=== PATIENT | male | born 1945 | race African-American/Black ===

== ENCOUNTER 2017-11-01 10:51 | Inpatient (IN) ==
[2017-11-01] MEDS ORDERED: MECLIZINE 25 MG TABLET PO STA (13:16)
[2017-11-01] MEDS ORDERED: ONDANSETRON 4 MG/2 ML VIAL IV STA (13:16)
[2017-11-01] MEDS ORDERED: SODIUM CHLORIDE 0.9% 500 ML IV STA (13:16)
[2017-11-01 14:11] LABS: Basophils # 0.1 10*3/uL (0.0-0.2); Basophils % 0.9 % (0.0-0.8); Eosinophils # 0.7 10*3/uL (0.0-0.87); Eosinophils % 7.7 % (0.00-10.9); Hematocrit 35.9 VOL% (42.0-52.0); Hemoglobin 12.4 GM/DL (14.0-18.0); Immature Granulocytes % 0.2 %; Immature Granulocytes Absolute 0.02 #; Lymphocytes # 1.5 10*3/uL (1.4-4.0); Lymphocytes % 15.9 % (21.2-54.2); Mean Corpuscular HGB Conc 34.5 GM/DL (32-36); Mean Corpuscular Hemoglobin 32 PG (27-34); Mean Corpuscular Volume 93.2 FL (87-102); Mean Platelet Volume 9.4 FL (9.6-12.0); Monocytes # 0.7 10*3/uL (0.11-0.8); Monocytes % 7.3 % (1.7-12.7); Neutrophils # 6.3 10*3/uL (1.4-7.4); Platelet Count 327 T/CUMM (130-400); Red Blood Count 3.85 MC/CUMM (3.8-5.5); Red Cell Distribution Width 12.1 % (9.3-17.3); White Blood Count 9.3 T/CUMM (4-12)
[2017-11-01 14:28] LABS: PT Patient Result 10.2 SECS
[2017-11-01 14:31] LABS: Alanine Aminotransferase 18 U/L (16-61); Albumin 3.1 G/DL (3.4-5.0); Alkaline Phosphatase 81 U/L (45-117); Aspartate Amino Transferase 14 U/L (0-37); Bilirubin,Total < 0.39 MG/DL (0.2-1.0); Blood Urea Nitrogen 10 MG/DL (7-18); Calcium 9.1 MG/DL (8.5-10.1); Glucose 231 MG/DL (74-106); Osmolality,Calculated 273.2 MOS/KG (273-304); Potassium 4.3 MMOL/L (3.5-5.1); Sodium 134 MMOL/L (136-145); Total Protein 6.9 G/DL (6.4-8.3); Troponin I Only < 0.015 NG/ML (0.00-0.045)
[2017-11-01] MEDS ORDERED: cefTRIAXone 1,000 MG in SODIUM CHLORIDE 0.9% 100 ML IV STA (14:48)
[2017-11-01] MEDS ORDERED: MECLIZINE 25 MG TABLET ONE (15:07)
[2017-11-01] MEDS ORDERED: ONDANSETRON 4 MG/2 ML VIAL ONE (15:07)
[2017-11-01] MEDS ORDERED: cefTRIAXone 1,000 MG VIAL ONE (15:07)
[2017-11-01] MEDS ORDERED: MORPHINE 2 MG/1 ML SYRINGE IV PRN (15:21)
[2017-11-01] MEDS ORDERED: GLUCAGON 1 MG VIAL IM PRN (15:21)
[2017-11-01] MEDS ORDERED: ACETAMINOPHEN 325 MG TABLET PO PRN (15:21)
[2017-11-01] MEDS ORDERED: DEXTROSE 50% 25 GM/50 ML VIAL IV PRN (15:21)
[2017-11-01] MEDS ORDERED: diphenhydrAMINE CAP 25 MG CAPSULE PO PRN (15:21)
[2017-11-01 15:22] LABS: Sedimentation Rate-Westergren 95 MM/HR (0-20)
[2017-11-01] MEDS ORDERED: ALBUTEROL 2.5 MG/3 ML NEB RESP TX PRN (15:33)
[2017-11-01 15:37] LABS: Apearance,Urine CLEAR (Clear); Bilirubin,Urine Negative (Negative); Blood, Urine Negative (Negative); Glucose,Urine (UA) >=500 mg/dL (Negative); Ketones,Urine Negative (Negative); Mucus,Urine Occasional /LPF (Occasional); Nitrite,Urine Negative (Negative); Protein,Urine Negative; RBC,Urine <1 /HPF (0-4); Urine Color Yellow (Yellow); Urine Urobilinogen < 2.0 EU/DL (0.2-1.0); WBC,Urine <1 /HPF (0-6)
[2017-11-01 15:44] LABS: Barbiturates Screen,Urine Negative (Negative); Benzodiazepines Screen,Urine Negative (Negative); Cannabinoid Screen,Urine Negative (Negative); Opiate Screen,Urine Negative (Negative); Phencyclidine Screen,Urine Negative (Negative)
[2017-11-01 15:57] LABS: Thyroid Stimulating Hormone 1.34 uIU/ml (0.358-3.74); VLDL CHOLESTEROL 26.6 MG/DL
[2017-11-01] MEDS ORDERED: ASPIRIN CHEW 81 MG TABLET PO ONE (17:19)
[2017-11-01] MEDS ORDERED: LEVOFLOXACIN INJ 0 ML IV ONE (17:19)
[2017-11-01] MEDS ORDERED: PANTOPRAZOLE 40 MG TABLET PO ONE (17:19)
[2017-11-01] MEDS ORDERED: amLODIPine 5 MG TABLET ONE (17:20)
[2017-11-01] MEDS: PANTOPRAZOLE 40 MG TABLET PO SCH (17:24)
[2017-11-01] MEDS: amLODIPine 5 MG TABLET PO SCH (17:24)
[2017-11-01] MEDS: ASPIRIN EC 81 MG TABLET PO SCH (17:24)
[2017-11-01] MEDS: SODIUM CHLORIDE 0.9% 1,000 ML IV SCH (17:38)
[2017-11-01] MEDS: LEVOFLOXACIN INJ 750 MG in PREMIX 1 EACH IV SCH (17:39)
[2017-11-01] MEDS ORDERED: INSULIN LISPRO 100 UNIT/ML SUBCUT ONE (17:42)
[2017-11-01] MEDS: LOSARTAN 50 MG TABLET PO SCH (17:48)
[2017-11-01] MEDS: INSULIN LISPRO 100 UNIT/ML SUBCUT SCH (17:48)
[2017-11-01] MEDS: ALFUZOSIN 10 MG TABLET PO SCH (17:48)
[2017-11-01] MEDS: buPROPion SR 150 MG TABLET PO SCH (17:48)
[2017-11-01] MEDS: ALBUTEROL/IPRATROPIUM 3 ML NEB RESP TX SCH (20:24)
[2017-11-01] MEDS ORDERED: DORZOLAMIDE 2% OPH SOLN 10 ML BOTTLE BOTH EYES SCH (21:00)
[2017-11-01] MEDS: ATORVASTATIN 40 MG TABLET PO SCH (21:49)
[2017-11-01] MEDS: ENOXAPARIN 40 MG/0.4 ML SYRINGE SUBCUT SCH (21:49)
[2017-11-01] MEDS: GABAPENTIN 600 MG TABLET PO SCH (21:49)
[2017-11-01] MEDS: GLIMEPIRIDE 2 MG TABLET PO SCH (21:50)
[2017-11-01] MEDS: traZODone 50 MG TABLET PO SCH (21:50)
[2017-11-01] MEDS: PIPERACILLIN/TAZOBACTAM 3,375 MG in SODIUM CHLORIDE 0.9% 100 ML IV SCH (22:30)
[2017-11-02] MEDS: ALBUTEROL/IPRATROPIUM 3 ML NEB RESP TX SCH ×4 (01:55→19:28)
[2017-11-02] MEDS: SODIUM CHLORIDE 0.9% 1,000 ML IV SCH ×2 (06:27→18:45)
[2017-11-02] MEDS: PIPERACILLIN/TAZOBACTAM 3,375 MG in SODIUM CHLORIDE 0.9% 100 ML IV SCH ×3 (06:28→22:30)
[2017-11-02 06:35] LABS: Basophils # 0.1 10*3/uL (0.0-0.2); Basophils % 1.2 % (0.0-0.8); Eosinophils # 0.8 10*3/uL (0.0-0.87); Eosinophils % 10.4 % (0.00-10.9); Hematocrit 32.4 VOL% (42.0-52.0); Hemoglobin 11.7 GM/DL (14.0-18.0); Immature Granulocytes % 0.3 %; Immature Granulocytes Absolute 0.02 #; Lymphocytes # 1.5 10*3/uL (1.4-4.0); Lymphocytes % 19.7 % (21.2-54.2); Mean Corpuscular HGB Conc 36.1 GM/DL (32-36); Mean Corpuscular Hemoglobin 33 PG (27-34); Mean Corpuscular Volume 91.3 FL (87-102); Mean Platelet Volume 9.1 FL (9.6-12.0); Monocytes # 0.6 10*3/uL (0.11-0.8); Monocytes % 7.7 % (1.7-12.7); Neutrophils # 4.6 10*3/uL (1.4-7.4); Neutrophils % 60.7 % (38.7-73.9); Platelet Count 287 T/CUMM (130-400); Red Blood Count 3.55 MC/CUMM (3.8-5.5); Red Cell Distribution Width 12.1 % (9.3-17.3); White Blood Count 7.5 T/CUMM (4-12)
[2017-11-02 07:07] LABS: Calcium 8.3 MG/DL (8.5-10.1); Magnesium 1.8 MG/DL (1.8-2.4); Osmolality,Calculated 282.3 MOS/KG (273-304); Potassium 3.9 MMOL/L (3.5-5.1)
[2017-11-02] MEDS ORDERED: LORazepam 2 MG/1 ML VIAL IV PRN (08:01)
[2017-11-02 08:07] LABS: Eosinophils 14 % (0-10); Giant Platelets Few; Hypochromasia 1+; Lymphocytes 23 % (20-55); Platelet Estimate Adequate; Segmented Neutrophils 61 % (50-85); Total Cells Counted 100
[2017-11-02] MEDS: ASPIRIN EC 81 MG TABLET PO SCH (09:08)
[2017-11-02] MEDS: GLIMEPIRIDE 2 MG TABLET PO SCH ×2 (09:08→21:31)
[2017-11-02] MEDS: INSULIN LISPRO 100 UNIT/ML SUBCUT SCH ×2 (09:08→17:22)
[2017-11-02] MEDS: PANTOPRAZOLE 40 MG TABLET PO SCH (09:09)
[2017-11-02] MEDS: FOLIC ACID 1 MG TABLET PO SCH (09:09)
[2017-11-02] MEDS: LOSARTAN 50 MG TABLET PO SCH (09:09)
[2017-11-02] MEDS: buPROPion SR 150 MG TABLET PO SCH (09:09)
[2017-11-02] MEDS: amLODIPine 5 MG TABLET PO SCH (09:09)
[2017-11-02] MEDS: THIAMINE 100 MG TABLET PO SCH (09:09)
[2017-11-02] MEDS: MULTIVITAMIN (CENTRUM) TABLET PO SCH (09:09)
[2017-11-02] MEDS: ALFUZOSIN 10 MG TABLET PO SCH (09:09)
[2017-11-02] MEDS: GABAPENTIN 600 MG TABLET PO SCH ×3 (09:09→21:31)
[2017-11-02] MEDS: LEVOFLOXACIN INJ 750 MG in PREMIX 1 EACH IV SCH (17:23)
[2017-11-02] MEDS: guaiFENesin/DM ER 600-30 MG TABLET PO PRN (21:30)
[2017-11-02] MEDS: traZODone 50 MG TABLET PO SCH (21:30)
[2017-11-02] MEDS: ATORVASTATIN 40 MG TABLET PO SCH (21:30)
[2017-11-02] MEDS: ENOXAPARIN 40 MG/0.4 ML SYRINGE SUBCUT SCH (21:32)
[2017-11-03] MEDS: ALBUTEROL/IPRATROPIUM 3 ML NEB RESP TX SCH ×4 (00:20→19:38)
[2017-11-03] MEDS: SODIUM CHLORIDE 0.9% 1,000 ML IV SCH ×3 (02:57→19:31)
[2017-11-03] MEDS: PIPERACILLIN/TAZOBACTAM 3,375 MG in SODIUM CHLORIDE 0.9% 100 ML IV SCH ×3 (05:30→21:44)
[2017-11-03] MEDS: PANTOPRAZOLE 40 MG TABLET PO SCH (08:50)
[2017-11-03] MEDS: buPROPion SR 150 MG TABLET PO SCH (08:50)
[2017-11-03] MEDS: GABAPENTIN 600 MG TABLET PO SCH ×3 (08:50→21:42)
[2017-11-03] MEDS: amLODIPine 5 MG TABLET PO SCH (08:50)
[2017-11-03] MEDS: LOSARTAN 50 MG TABLET PO SCH (08:51)
[2017-11-03] MEDS: ASPIRIN EC 81 MG TABLET PO SCH (08:51)
[2017-11-03] MEDS: ALFUZOSIN 10 MG TABLET PO SCH (08:51)
[2017-11-03] MEDS: MULTIVITAMIN (CENTRUM) TABLET PO SCH (08:51)
[2017-11-03] MEDS: THIAMINE 100 MG TABLET PO SCH (08:51)
[2017-11-03] MEDS: GLIMEPIRIDE 2 MG TABLET PO SCH ×2 (08:51→21:41)
[2017-11-03] MEDS: FOLIC ACID 1 MG TABLET PO SCH (08:51)
[2017-11-03] MEDS: INSULIN LISPRO 100 UNIT/ML SUBCUT SCH ×2 (09:02→17:18)
[2017-11-03] MEDS: LEVOFLOXACIN INJ 750 MG in PREMIX 1 EACH IV SCH (17:18)
[2017-11-03] MEDS: traZODone 50 MG TABLET PO SCH (21:40)
[2017-11-03] MEDS: ATORVASTATIN 40 MG TABLET PO SCH (21:42)
[2017-11-04] MEDS: ALBUTEROL/IPRATROPIUM 3 ML NEB RESP TX SCH ×4 (01:37→19:12)
[2017-11-04 05:32] LABS: Basophils # 0.1 10*3/uL (0.0-0.2); Eosinophils # 0.6 10*3/uL (0.0-0.87); Eosinophils % 5.8 % (0.00-10.9); Hematocrit 32.1 VOL% (42.0-52.0); Hemoglobin 10.8 GM/DL (14.0-18.0); Immature Granulocytes % 0.4 %; Immature Granulocytes Absolute 0.04 #; Lymphocytes # 1.7 10*3/uL (1.4-4.0); Lymphocytes % 18.2 % (21.2-54.2); Mean Corpuscular HGB Conc 33.6 GM/DL (32-36); Mean Corpuscular Hemoglobin 32 PG (27-34); Mean Corpuscular Volume 94.7 FL (87-102); Mean Platelet Volume 8.8 FL (9.6-12.0); Monocytes # 0.7 10*3/uL (0.11-0.8); Monocytes % 6.9 % (1.7-12.7); Neutrophils # 6.4 10*3/uL (1.4-7.4); Neutrophils % 67.7 % (38.7-73.9); Platelet Count 283 T/CUMM (130-400); Red Blood Count 3.39 MC/CUMM (3.8-5.5); Red Cell Distribution Width 12.4 % (9.3-17.3); White Blood Count 9.4 T/CUMM (4-12)
[2017-11-04 05:57] LABS: Potassium 3.5 MMOL/L (3.5-5.1)
[2017-11-04] MEDS: PIPERACILLIN/TAZOBACTAM 3,375 MG in SODIUM CHLORIDE 0.9% 100 ML IV SCH ×2 (06:47→16:30)
[2017-11-04] MEDS: INSULIN LISPRO 100 UNIT/ML SUBCUT SCH ×2 (11:14→18:23)
[2017-11-04] MEDS: LEVOFLOXACIN INJ 750 MG in PREMIX 1 EACH IV SCH (11:16)
[2017-11-04] MEDS ORDERED: PROPOFOL 200 MG/20 ML VIAL IV ONE (12:39)
[2017-11-04] MEDS ORDERED: LIDOCAINE 2% 5 ML VIAL ONE (12:39)
[2017-11-04] MEDS: GLIMEPIRIDE 2 MG TABLET PO SCH ×2 (16:12→21:47)
[2017-11-04] MEDS: GABAPENTIN 600 MG TABLET PO SCH ×3 (16:13→21:48)
[2017-11-04] MEDS: PANTOPRAZOLE 40 MG TABLET PO SCH (16:22)
[2017-11-04] MEDS: FOLIC ACID 1 MG TABLET PO SCH (16:22)
[2017-11-04] MEDS: ALFUZOSIN 10 MG TABLET PO SCH (16:22)
[2017-11-04] MEDS: buPROPion SR 150 MG TABLET PO SCH (16:22)
[2017-11-04] MEDS: THIAMINE 100 MG TABLET PO SCH (16:22)
[2017-11-04] MEDS: amLODIPine 5 MG TABLET PO SCH (16:22)
[2017-11-04] MEDS: ASPIRIN EC 81 MG TABLET PO SCH (16:22)
[2017-11-04] MEDS: LOSARTAN 50 MG TABLET PO SCH (16:23)
[2017-11-04] MEDS: MULTIVITAMIN (CENTRUM) TABLET PO SCH (16:23)
[2017-11-04] MEDS: ATORVASTATIN 40 MG TABLET PO SCH (21:47)
[2017-11-04] MEDS: SODIUM CHLORIDE 0.9% 1,000 ML IV SCH (21:47)
[2017-11-04] MEDS: traZODone 50 MG TABLET PO SCH (21:47)
[2017-11-04] MEDS: ENOXAPARIN 40 MG/0.4 ML SYRINGE SUBCUT SCH (21:48)
[2017-11-05] MEDS: PIPERACILLIN/TAZOBACTAM 3,375 MG in SODIUM CHLORIDE 0.9% 100 ML IV SCH ×3 (00:10→21:55)
[2017-11-05] MEDS: ALBUTEROL/IPRATROPIUM 3 ML NEB RESP TX SCH ×4 (00:16→19:41)
[2017-11-05] MEDS: SODIUM CHLORIDE 0.9% 1,000 ML IV SCH ×3 (09:37→21:00)
[2017-11-05] MEDS: LEVOFLOXACIN INJ 750 MG in PREMIX 1 EACH IV SCH (09:38)
[2017-11-05] MEDS: INSULIN LISPRO 100 UNIT/ML SUBCUT SCH ×2 (09:39→16:17)
[2017-11-05] MEDS: LOSARTAN 50 MG TABLET PO SCH (09:41)
[2017-11-05] MEDS: GLIMEPIRIDE 2 MG TABLET PO SCH ×2 (09:41→22:16)
[2017-11-05] MEDS: THIAMINE 100 MG TABLET PO SCH (09:41)
[2017-11-05] MEDS: PANTOPRAZOLE 40 MG TABLET PO SCH (09:41)
[2017-11-05] MEDS: FOLIC ACID 1 MG TABLET PO SCH (09:41)
[2017-11-05] MEDS: ALFUZOSIN 10 MG TABLET PO SCH (09:41)
[2017-11-05] MEDS: MULTIVITAMIN (CENTRUM) TABLET PO SCH (09:41)
[2017-11-05] MEDS: amLODIPine 5 MG TABLET PO SCH (09:41)
[2017-11-05] MEDS: GABAPENTIN 600 MG TABLET PO SCH ×3 (09:41→22:17)
[2017-11-05] MEDS: buPROPion SR 150 MG TABLET PO SCH (09:42)
[2017-11-05] MEDS: ASPIRIN EC 81 MG TABLET PO SCH (09:44)
[2017-11-05] MEDS ORDERED: POLYETHYLENE GLYCOL POWDER 17 GM PACK PO PRN (11:34)
[2017-11-05] MEDS: DOCUSATE SODIUM 100 MG CAPSULE PO PRN (22:16)
[2017-11-05] MEDS: ENOXAPARIN 40 MG/0.4 ML SYRINGE SUBCUT SCH (22:16)
[2017-11-05] MEDS: ATORVASTATIN 40 MG TABLET PO SCH (22:17)
[2017-11-05] MEDS: traZODone 50 MG TABLET PO SCH (22:17)
[2017-11-06] MEDS: ALBUTEROL/IPRATROPIUM 3 ML NEB RESP TX SCH ×4 (00:05→20:06)
[2017-11-06] MEDS: SODIUM CHLORIDE 0.9% 1,000 ML IV SCH (04:21)
[2017-11-06] MEDS: PIPERACILLIN/TAZOBACTAM 3,375 MG in SODIUM CHLORIDE 0.9% 100 ML IV SCH (04:24)
[2017-11-06 05:43] LABS: Basophils # 0.1 10*3/uL (0.0-0.2); Basophils % 1.1 % (0.0-0.8); Eosinophils # 0.4 10*3/uL (0.0-0.87); Eosinophils % 6.7 % (0.00-10.9); Hematocrit 31.3 VOL% (42.0-52.0); Immature Granulocytes % 0.3 %; Immature Granulocytes Absolute 0.02 #; Lymphocytes # 1.7 10*3/uL (1.4-4.0); Lymphocytes % 25.2 % (21.2-54.2); Mean Corpuscular HGB Conc 35.1 GM/DL (32-36); Mean Corpuscular Hemoglobin 33 PG (27-34); Mean Corpuscular Volume 93.2 FL (87-102); Mean Platelet Volume 8.9 FL (9.6-12.0); Monocytes # 0.5 10*3/uL (0.11-0.8); Monocytes % 7.3 % (1.7-12.7); Neutrophils # 3.9 10*3/uL (1.4-7.4); Neutrophils % 59.4 % (38.7-73.9); Platelet Count 272 T/CUMM (130-400); Red Blood Count 3.36 MC/CUMM (3.8-5.5); Red Cell Distribution Width 12.7 % (9.3-17.3); White Blood Count 6.6 T/CUMM (4-12)
[2017-11-06 06:11] LABS: Calcium 8.3 MG/DL (8.5-10.1); Osmolality,Calculated 278.1 MOS/KG (273-304); Potassium 3.5 MMOL/L (3.5-5.1)
[2017-11-06] MEDS: amLODIPine 5 MG TABLET PO SCH (09:00)
[2017-11-06] MEDS: ALFUZOSIN 10 MG TABLET PO SCH (09:00)
[2017-11-06] MEDS: INSULIN LISPRO 100 UNIT/ML SUBCUT SCH ×2 (09:00→17:23)
[2017-11-06] MEDS: FOLIC ACID 1 MG TABLET PO SCH (09:00)
[2017-11-06] MEDS: GABAPENTIN 600 MG TABLET PO SCH ×3 (09:00→22:42)
[2017-11-06] MEDS: MULTIVITAMIN (CENTRUM) TABLET PO SCH (09:01)
[2017-11-06] MEDS: PANTOPRAZOLE 40 MG TABLET PO SCH (09:01)
[2017-11-06] MEDS: GLIMEPIRIDE 2 MG TABLET PO SCH ×2 (09:01→22:43)
[2017-11-06] MEDS: buPROPion SR 150 MG TABLET PO SCH (09:01)
[2017-11-06] MEDS: ASPIRIN EC 81 MG TABLET PO SCH (09:01)
[2017-11-06] MEDS: THIAMINE 100 MG TABLET PO SCH (09:01)
[2017-11-06] MEDS: LOSARTAN 50 MG TABLET PO SCH (09:01)
[2017-11-06] MEDS: LEVOFLOXACIN INJ 750 MG in PREMIX 1 EACH IV SCH (09:01)
[2017-11-06] MEDS: ATORVASTATIN 40 MG TABLET PO SCH (22:42)
[2017-11-06] MEDS: DOCUSATE SODIUM 100 MG CAPSULE PO PRN (22:43)
[2017-11-06] MEDS: traZODone 50 MG TABLET PO SCH (22:43)
[2017-11-06] MEDS: ENOXAPARIN 40 MG/0.4 ML SYRINGE SUBCUT SCH (22:44)
[2017-11-07] MEDS: ALBUTEROL/IPRATROPIUM 3 ML NEB RESP TX SCH ×4 (01:01→20:35)
[2017-11-07] MEDS: ONDANSETRON 4 MG/2 ML VIAL IV PRN (02:14)
[2017-11-07] MEDS: INSULIN LISPRO 100 UNIT/ML SUBCUT SCH ×2 (09:23→17:05)
[2017-11-07] MEDS: buPROPion SR 150 MG TABLET PO SCH (09:23)
[2017-11-07] MEDS: PANTOPRAZOLE 40 MG TABLET PO SCH (09:24)
[2017-11-07] MEDS: GABAPENTIN 600 MG TABLET PO SCH ×3 (09:24→22:54)
[2017-11-07] MEDS: ALFUZOSIN 10 MG TABLET PO SCH (09:24)
[2017-11-07] MEDS: LEVOFLOXACIN 750 MG TABLET PO SCH (09:24)
[2017-11-07] MEDS: ASPIRIN EC 81 MG TABLET PO SCH (09:24)
[2017-11-07] MEDS: LOSARTAN 50 MG TABLET PO SCH (09:24)
[2017-11-07] MEDS: FOLIC ACID 1 MG TABLET PO SCH (09:24)
[2017-11-07] MEDS: amLODIPine 5 MG TABLET PO SCH (09:24)
[2017-11-07] MEDS: MULTIVITAMIN (CENTRUM) TABLET PO SCH (09:24)
[2017-11-07] MEDS: GLIMEPIRIDE 2 MG TABLET PO SCH ×2 (09:24→22:55)
[2017-11-07] MEDS: THIAMINE 100 MG TABLET PO SCH (09:24)
[2017-11-07] MEDS: POLYETHYLENE GLYCOL POWDER 17 GM PACK PO SCH (14:57)
[2017-11-07] MEDS: traZODone 50 MG TABLET PO SCH (22:54)
[2017-11-07] MEDS: ATORVASTATIN 40 MG TABLET PO SCH (22:55)
[2017-11-07] MEDS: DOCUSATE SODIUM 100 MG CAPSULE PO PRN (22:55)
[2017-11-07] MEDS: guaiFENesin/DM ER 600-30 MG TABLET PO PRN (22:57)
[2017-11-07] MEDS: ENOXAPARIN 40 MG/0.4 ML SYRINGE SUBCUT SCH (22:57)
[2017-11-08] MEDS: ALBUTEROL/IPRATROPIUM 3 ML NEB RESP TX SCH ×4 (00:19→19:10)
[2017-11-08 06:04] LABS: Basophils % 0.4 % (0.0-0.8); Eosinophils # 0.9 10*3/uL (0.0-0.87); Eosinophils % 12.8 % (0.00-10.9); Hematocrit 31.9 VOL% (42.0-52.0); Hemoglobin 10.7 GM/DL (14.0-18.0); Immature Granulocytes % 0.1 %; Immature Granulocytes Absolute 0.01 #; Lymphocytes # 1.1 10*3/uL (1.4-4.0); Lymphocytes % 15.8 % (21.2-54.2); Mean Corpuscular HGB Conc 33.5 GM/DL (32-36); Mean Corpuscular Hemoglobin 32 PG (27-34); Mean Corpuscular Volume 95.5 FL (87-102); Mean Platelet Volume 9.3 FL (9.6-12.0); Monocytes # 0.5 10*3/uL (0.11-0.8); Monocytes % 7.3 % (1.7-12.7); Neutrophils # 4.4 10*3/uL (1.4-7.4); Neutrophils % 63.6 % (38.7-73.9); Platelet Count 259 T/CUMM (130-400); Red Blood Count 3.34 MC/CUMM (3.8-5.5); Red Cell Distribution Width 12.9 % (9.3-17.3)
[2017-11-08 06:32] LABS: Calcium 8.3 MG/DL (8.5-10.1); Osmolality,Calculated 279.1 MOS/KG (273-304); Potassium 3.9 MMOL/L (3.5-5.1)
[2017-11-08 06:35] LABS: Eosinophils 12 % (0-10); Lymphocytes 18 % (20-55); Segmented Neutrophils 63 % (50-85); Total Cells Counted 100
[2017-11-08 06:36] LABS: Giant Platelets Few; Hypochromasia 1+; Ovalocytes Slight; Platelet Estimate Adequate
[2017-11-08] MEDS: LOSARTAN 50 MG TABLET PO SCH (09:04)
[2017-11-08] MEDS: LEVOFLOXACIN 750 MG TABLET PO SCH (09:05)
[2017-11-08] MEDS: FOLIC ACID 1 MG TABLET PO SCH (09:05)
[2017-11-08] MEDS: THIAMINE 100 MG TABLET PO SCH (09:05)
[2017-11-08] MEDS: buPROPion SR 150 MG TABLET PO SCH (09:05)
[2017-11-08] MEDS: GABAPENTIN 600 MG TABLET PO SCH ×3 (09:05→21:50)
[2017-11-08] MEDS: ASPIRIN EC 81 MG TABLET PO SCH (09:05)
[2017-11-08] MEDS: ALFUZOSIN 10 MG TABLET PO SCH (09:05)
[2017-11-08] MEDS: MULTIVITAMIN (CENTRUM) TABLET PO SCH (09:05)
[2017-11-08] MEDS: PANTOPRAZOLE 40 MG TABLET PO SCH (09:05)
[2017-11-08] MEDS: POLYETHYLENE GLYCOL POWDER 17 GM PACK PO SCH (09:06)
[2017-11-08] MEDS: GLIMEPIRIDE 2 MG TABLET PO SCH ×2 (09:06→21:50)
[2017-11-08] MEDS: amLODIPine 5 MG TABLET PO SCH (09:06)
[2017-11-08] MEDS: INSULIN LISPRO 100 UNIT/ML SUBCUT SCH ×2 (10:41→17:22)
[2017-11-08] MEDS: ONDANSETRON 4 MG/2 ML VIAL IV PRN ×2 (16:01→21:52)
[2017-11-08] MEDS: traZODone 50 MG TABLET PO SCH (21:49)
[2017-11-08] MEDS: ATORVASTATIN 40 MG TABLET PO SCH (21:49)
[2017-11-08] MEDS: ENOXAPARIN 40 MG/0.4 ML SYRINGE SUBCUT SCH (21:56)
[2017-11-09] MEDS: ALBUTEROL/IPRATROPIUM 3 ML NEB RESP TX SCH ×4 (00:20→21:02)
[2017-11-09] MEDS ORDERED: HALOPERIDOL DECANOATE 50 MG/1 ML VIAL IM SCH (09:00)
[2017-11-09] MEDS: INSULIN LISPRO 100 UNIT/ML SUBCUT SCH ×2 (09:23→18:55)
[2017-11-09] MEDS: POLYETHYLENE GLYCOL POWDER 17 GM PACK PO SCH (09:24)
[2017-11-09] MEDS: THIAMINE 100 MG TABLET PO SCH (09:25)
[2017-11-09] MEDS: buPROPion SR 150 MG TABLET PO SCH (09:25)
[2017-11-09] MEDS: GABAPENTIN 600 MG TABLET PO SCH ×3 (09:25→21:02)
[2017-11-09] MEDS: LOSARTAN 50 MG TABLET PO SCH (09:25)
[2017-11-09] MEDS: ASPIRIN EC 81 MG TABLET PO SCH (09:25)
[2017-11-09] MEDS: GLIMEPIRIDE 2 MG TABLET PO SCH ×2 (09:25→21:03)
[2017-11-09] MEDS: PANTOPRAZOLE 40 MG TABLET PO SCH (09:25)
[2017-11-09] MEDS: FOLIC ACID 1 MG TABLET PO SCH (09:26)
[2017-11-09] MEDS: MULTIVITAMIN (CENTRUM) TABLET PO SCH (09:26)
[2017-11-09] MEDS: amLODIPine 5 MG TABLET PO SCH (09:26)
[2017-11-09] MEDS: LEVOFLOXACIN 750 MG TABLET PO SCH (09:26)
[2017-11-09] MEDS: ALFUZOSIN 10 MG TABLET PO SCH (09:26)
[2017-11-09] MEDS: HALOPERIDOL 1 MG TABLET PO SCH (21:02)
[2017-11-09] MEDS: ATORVASTATIN 40 MG TABLET PO SCH (21:02)
[2017-11-09] MEDS: ENOXAPARIN 40 MG/0.4 ML SYRINGE SUBCUT SCH (21:03)
[2017-11-09] MEDS: traZODone 50 MG TABLET PO SCH (21:03)
[2017-11-10] MEDS: ALBUTEROL/IPRATROPIUM 3 ML NEB RESP TX SCH ×2 (01:18→08:05)
[2017-11-10] MEDS: POLYETHYLENE GLYCOL POWDER 17 GM PACK PO SCH (10:04)
[2017-11-10] MEDS: buPROPion SR 150 MG TABLET PO SCH (10:06)
[2017-11-10] MEDS: GABAPENTIN 600 MG TABLET PO SCH (10:06)
[2017-11-10] MEDS: GLIMEPIRIDE 2 MG TABLET PO SCH (10:06)
[2017-11-10] MEDS: MULTIVITAMIN (CENTRUM) TABLET PO SCH (10:06)
[2017-11-10] MEDS: HALOPERIDOL 1 MG TABLET PO SCH (10:06)
[2017-11-10] MEDS: LOSARTAN 50 MG TABLET PO SCH (10:06)
[2017-11-10] MEDS: ASPIRIN EC 81 MG TABLET PO SCH (10:06)
[2017-11-10] MEDS: FOLIC ACID 1 MG TABLET PO SCH (10:06)
[2017-11-10] MEDS: LEVOFLOXACIN 750 MG TABLET PO SCH (10:06)
[2017-11-10] MEDS: ALFUZOSIN 10 MG TABLET PO SCH (10:06)
[2017-11-10] MEDS: PANTOPRAZOLE 40 MG TABLET PO SCH (10:06)
[2017-11-10] MEDS: THIAMINE 100 MG TABLET PO SCH (10:06)
[2017-11-10] MEDS: amLODIPine 5 MG TABLET PO SCH (10:06)
[2017-11-10] MEDS: INSULIN LISPRO 100 UNIT/ML SUBCUT SCH (10:07)
[2017-11-10 12:10] VITALS: BP 115/76
== END 2017-11-10 14:12 | DRG 73 ==
LOC: N.ED 10:51 → N.EDINP 14:55 → SUATTDRO 14:55 → N.2E 18:30
PROVIDERS: ADMIT Family Medicine; ATTEND Internal Medicine

== ENCOUNTER 2019-01-30 14:36 | Inpatient (IN) ==
[2019-01-30] MEDS ORDERED: ONDANSETRON 4 MG/2 ML VIAL IV STA (14:58)
[2019-01-30] MEDS ORDERED: hydrALAZINE 20 MG/1 ML VIAL IV STA ×2 (14:58→19:03)
[2019-01-30] MEDS ORDERED: ASPIRIN 325 MG TABLET PO STA (14:58)
[2019-01-30 15:38] LABS: Basophils # 0.1 10*3/uL (0.0-0.2); Basophils % 1.3 % (0.0-0.8); Eosinophils # 0.2 10*3/uL (0.0-0.87); Eosinophils % 3.4 % (0.00-10.9); Hematocrit 38.2 VOL% (42.0-52.0); Hemoglobin 12.5 GM/DL (14.0-18.0); Immature Granulocytes % 0.2 %; Immature Granulocytes Absolute 0.01 #; Lymphocytes # 0.8 10*3/uL (1.4-4.0); Lymphocytes % 13.2 % (21.2-54.2); Mean Corpuscular HGB Conc 32.7 GM/DL (32-36); Mean Corpuscular Volume 92.5 FL (87-102); Mean Platelet Volume 10.4 FL (9.6-12.0); Monocytes % 15.3 % (1.7-12.7); Neutrophils % 66.6 % (38.7-73.9); Platelet Count 271 T/CUMM (130-400); Red Blood Count 4.13 MC/CUMM (3.8-5.5); Red Cell Distribution Width 13.6 % (9.3-17.3); White Blood Count 6.2 T/CUMM (4-12)
[2019-01-30 15:48] LABS: INR 0.9; Partial Thromboplastin Time 23.3 SECS (0-40)
[2019-01-30 16:11] LABS: Alanine Aminotransferase 23 U/L (16-61); Albumin 3.4 G/DL (3.4-5.0); Alkaline Phosphatase 91 U/L (45-117); Aspartate Amino Transferase 20 U/L (0-37); Bilirubin,Total < 0.39 MG/DL (0.2-1.0); Blood Urea Nitrogen 22 MG/DL (7-18); Calcium 9.3 MG/DL (8.5-10.1); Glucose 236 MG/DL (74-106); Osmolality,Calculated 280.1 MOS/KG (273-304)
[2019-01-30] MEDS ORDERED: LABETALOL 20 MG/4 ML SYRINGE IV STA (17:01)
[2019-01-30] MEDS ORDERED: ACETAMINOPHEN 325 MG TABLET PO PRN (19:02)
[2019-01-30] MEDS ORDERED: GLUCAGON 1 MG VIAL IM PRN (19:02)
[2019-01-30] MEDS ORDERED: MORPHINE 4 MG/1 ML VIAL IV PRN (19:02)
[2019-01-30] MEDS ORDERED: DEXTROSE 50% 25 GM/50 ML SYRINGE IV PRN (19:02)
[2019-01-30] MEDS ORDERED: ONDANSETRON 4 MG/2 ML VIAL IV PRN (19:02)
[2019-01-30] MEDS: hydrALAZINE 20 MG/1 ML VIAL IV SCH ×2 (19:08→23:02)
[2019-01-30 20:24] LABS: Apearance,Urine CLOUDY (Clear); Bacteria,Urine Occasional /HPF (Few); Bilirubin,Urine Negative (Negative); Blood, Urine Negative (Negative); Glucose,Urine (UA) 150 mg/dL (Negative); Hyaline Casts,Urine 1 /LPF (0-3); Ketones,Urine Negative (Negative); Mucus,Urine Occasional /LPF (Occasional); Nitrite,Urine Negative (Negative); Protein,Urine Negative; RBC,Urine 1 /HPF (0-4); Squamous Epithelial Cell,Urine Occasional /HPF (0-10); Urine Color BLUE (Yellow); Urine Specific Gravity 1.014 (1.001-1.035); Urine Urobilinogen < 2.0 EU/DL (0.2-1.0)
[2019-01-30] MEDS: POLYETHYLENE GLYCOL POWDER 17 GM PACK PO SCH (21:14)
[2019-01-30] MEDS: ENOXAPARIN 40 MG/0.4 ML SYRINGE SUBCUT SCH (21:14)
[2019-01-30] MEDS: TAMSULOSIN 0.4 MG CAPSULE PO SCH (21:15)
[2019-01-30] MEDS: DOCUSATE SODIUM 100 MG CAPSULE PO SCH (21:15)
[2019-01-30] MEDS: cloNIDine 0.1 MG TABLET PO SCH (21:15)
[2019-01-30] MEDS: traZODone 50 MG TABLET PO SCH (21:15)
[2019-01-30] MEDS: PREGABALIN 75 MG CAPSULE PO SCH (21:15)
[2019-01-30] MEDS: INSULIN REGULAR 100 UNIT/ML SUBCUT SCH (21:16)
[2019-01-30] MEDS: TRAVOPROST 0.004% OPH SOLN 2.5 ML BOTTLE BOTH EYES SCH (21:17)
[2019-01-30] MEDS: DORZOLAMIDE 2% OPH SOLN 10 ML BOTTLE BOTH EYES SCH (21:17)
[2019-01-30 21:43] LABS: Barbiturates Screen,Urine Negative (Negative); Benzodiazepines Screen,Urine Negative (Negative); Cannabinoid Screen,Urine Negative (Negative); Opiate Screen,Urine Negative (Negative); Phencyclidine Screen,Urine Negative (Negative)
[2019-01-31] MEDS: INSULIN REGULAR 100 UNIT/ML SUBCUT SCH ×4 (00:26→17:12)
[2019-01-31] MEDS ORDERED: hydrALAZINE 20 MG/1 ML VIAL IV PRN (00:30)
[2019-01-31] MEDS: PREGABALIN 75 MG CAPSULE PO SCH ×3 (06:10→22:53)
[2019-01-31] MEDS: SODIUM CHLORIDE 0.9% 1,000 ML IV SCH ×2 (06:10→17:35)
[2019-01-31] MEDS: GLIMEPIRIDE 2 MG TABLET PO SCH ×2 (06:10→17:35)
[2019-01-31 06:19] LABS: Basophils # 0.1 10*3/uL (0.0-0.2); Basophils % 1.6 % (0.0-0.8); Eosinophils # 0.2 10*3/uL (0.0-0.87); Eosinophils % 3.3 % (0.00-10.9); Hematocrit 36.7 VOL% (42.0-52.0); Hemoglobin 12.3 GM/DL (14.0-18.0); Immature Granulocytes % 0.4 %; Immature Granulocytes Absolute 0.02 #; Lymphocytes # 1.4 10*3/uL (1.4-4.0); Lymphocytes % 26.1 % (21.2-54.2); Mean Corpuscular HGB Conc 33.5 GM/DL (32-36); Mean Platelet Volume 10.8 FL (9.6-12.0); Monocytes % 14.8 % (1.7-12.7); Neutrophils % 53.8 % (38.7-73.9); Platelet Count 276 T/CUMM (130-400); Red Blood Count 3.99 MC/CUMM (3.8-5.5); Red Cell Distribution Width 13.7 % (9.3-17.3); White Blood Count 5.5 T/CUMM (4-12)
[2019-01-31 06:45] LABS: Albumin 3.1 G/DL (3.4-5.0); Bilirubin,Total 0.4 MG/DL (0.2-1.0); Calcium 9.2 MG/DL (8.5-10.1); Osmolality,Calculated 286.5 MOS/KG (273-304); Risk Ratio 3.21; Total Protein 7.3 G/DL (6.4-8.3); VLDL CHOLESTEROL 26.4 MG/DL
[2019-01-31] MEDS: POLYETHYLENE GLYCOL POWDER 17 GM PACK PO SCH ×2 (09:43→17:27)
[2019-01-31] MEDS: DORZOLAMIDE 2% OPH SOLN 10 ML BOTTLE BOTH EYES SCH ×2 (09:43→22:54)
[2019-01-31] MEDS: TIMOLOL 0.5% OPH SOLN 5 ML BOTTLE RIGHT EYE SCH (09:43)
[2019-01-31] MEDS: THIAMINE 100 MG TABLET PO SCH (09:44)
[2019-01-31] MEDS: ALFUZOSIN 10 MG TABLET PO SCH (09:44)
[2019-01-31] MEDS: PANTOPRAZOLE 40 MG TABLET PO SCH (09:44)
[2019-01-31] MEDS: TAMSULOSIN 0.4 MG CAPSULE PO SCH ×2 (09:44→17:35)
[2019-01-31] MEDS: CHOLECALCIFEROL 5,000 UNIT TABLET PO SCH (09:44)
[2019-01-31] MEDS: DULoxetine 30 MG CAPSULE PO SCH (09:44)
[2019-01-31] MEDS: DOCUSATE SODIUM 100 MG CAPSULE PO SCH ×2 (09:44→22:52)
[2019-01-31] MEDS: cloNIDine 0.1 MG TABLET PO SCH ×4 (09:45→22:52)
[2019-01-31] MEDS: PANTOPRAZOLE 40 MG VIAL IV SCH (09:46)
[2019-01-31] MEDS ORDERED: HALOPERIDOL DECANOATE 200 MG IM SCH (12:00)
[2019-01-31] MEDS: ASPIRIN EC 81 MG TABLET PO SCH (17:34)
[2019-01-31] MEDS: traZODone 50 MG TABLET PO SCH (22:52)
[2019-01-31] MEDS: ENOXAPARIN 40 MG/0.4 ML SYRINGE SUBCUT SCH (22:53)
[2019-01-31] MEDS: TRAVOPROST 0.004% OPH SOLN 2.5 ML BOTTLE BOTH EYES SCH (22:54)
[2019-02-01] MEDS: INSULIN REGULAR 100 UNIT/ML SUBCUT SCH ×4 (01:45→17:15)
[2019-02-01] MEDS: PREGABALIN 75 MG CAPSULE PO SCH ×3 (06:27→21:14)
[2019-02-01] MEDS: POLYETHYLENE GLYCOL POWDER 17 GM PACK PO SCH ×2 (10:35→17:15)
[2019-02-01] MEDS: GLIMEPIRIDE 2 MG TABLET PO SCH ×2 (10:35→17:14)
[2019-02-01] MEDS: TAMSULOSIN 0.4 MG CAPSULE PO SCH ×2 (10:35→17:15)
[2019-02-01] MEDS: DULoxetine 30 MG CAPSULE PO SCH (10:36)
[2019-02-01] MEDS: cloNIDine 0.1 MG TABLET PO SCH ×4 (10:36→21:15)
[2019-02-01] MEDS: ASPIRIN EC 81 MG TABLET PO SCH (10:36)
[2019-02-01] MEDS: DOCUSATE SODIUM 100 MG CAPSULE PO SCH ×2 (10:36→21:14)
[2019-02-01] MEDS: TIMOLOL 0.5% OPH SOLN 5 ML BOTTLE RIGHT EYE SCH (10:37)
[2019-02-01] MEDS: CHOLECALCIFEROL 5,000 UNIT TABLET PO SCH (10:38)
[2019-02-01] MEDS: ALFUZOSIN 10 MG TABLET PO SCH (10:38)
[2019-02-01] MEDS: DORZOLAMIDE 2% OPH SOLN 10 ML BOTTLE BOTH EYES SCH ×2 (10:38→21:14)
[2019-02-01] MEDS: THIAMINE 100 MG TABLET PO SCH (10:38)
[2019-02-01] MEDS: PANTOPRAZOLE 40 MG VIAL IV SCH (10:42)
[2019-02-01] MEDS: PANTOPRAZOLE 40 MG TABLET PO SCH (10:47)
[2019-02-01] MEDS ORDERED: cefTRIAXone 500 MG in SYRINGE 1 EACH IV SCH (18:00)
[2019-02-01] MEDS ORDERED: SIMVASTATIN 10 MG TABLET PO SCH (21:00)
[2019-02-01] MEDS: ENOXAPARIN 40 MG/0.4 ML SYRINGE SUBCUT SCH (21:14)
[2019-02-01] MEDS: TRAVOPROST 0.004% OPH SOLN 2.5 ML BOTTLE BOTH EYES SCH (21:14)
[2019-02-01] MEDS: traZODone 50 MG TABLET PO SCH (21:15)
[2019-02-01] MEDS: SODIUM CHLORIDE 0.9% 1,000 ML IV SCH (21:15)
[2019-02-02] MEDS: INSULIN REGULAR 100 UNIT/ML SUBCUT SCH ×2 (01:45→06:06)
[2019-02-02] MEDS: PREGABALIN 75 MG CAPSULE PO SCH (05:55)
[2019-02-02 08:10] VITALS: BP 150/76
[2019-02-02] MEDS: ASPIRIN EC 81 MG TABLET PO SCH (08:21)
[2019-02-02] MEDS: CHOLECALCIFEROL 5,000 UNIT TABLET PO SCH (08:21)
[2019-02-02] MEDS: POLYETHYLENE GLYCOL POWDER 17 GM PACK PO SCH (08:21)
[2019-02-02] MEDS: DULoxetine 30 MG CAPSULE PO SCH (08:21)
[2019-02-02] MEDS: GLIMEPIRIDE 2 MG TABLET PO SCH (08:21)
[2019-02-02] MEDS: cloNIDine 0.1 MG TABLET PO SCH (08:21)
[2019-02-02] MEDS: PANTOPRAZOLE 40 MG TABLET PO SCH (08:22)
[2019-02-02] MEDS: DOCUSATE SODIUM 100 MG CAPSULE PO SCH (08:22)
[2019-02-02] MEDS: ALFUZOSIN 10 MG TABLET PO SCH (08:22)
[2019-02-02] MEDS: TAMSULOSIN 0.4 MG CAPSULE PO SCH (08:22)
[2019-02-02] MEDS: SODIUM CHLORIDE 0.9% 1,000 ML IV SCH (08:23)
[2019-02-02] MEDS: PANTOPRAZOLE 40 MG VIAL IV SCH (08:24)
[2019-02-02] MEDS: DORZOLAMIDE 2% OPH SOLN 10 ML BOTTLE BOTH EYES SCH (08:25)
[2019-02-02] MEDS: THIAMINE 100 MG TABLET PO SCH (08:28)
[2019-02-02] MEDS: TIMOLOL 0.5% OPH SOLN 5 ML BOTTLE RIGHT EYE SCH (08:29)
== END 2019-02-02 11:50 | DRG 74 ==
LOC: EDBD → EDUNIT# → N.ED 14:36 → N.EDINP 16:53 → N.TELES 19:38
PROVIDERS: ADMIT Internal Medicine; ATTEND Internal Medicine

== ENCOUNTER 2020-06-22 17:09 | Inpatient (IN) ==
[2020-06-22] MEDS ORDERED: LACTATED RINGERS 1,000 ML IV ONE (17:18)
[2020-06-22 17:53] LABS: Basophils % 0.1 % (0.0-0.8); Hematocrit 39.7 VOL% (42.0-52.0); Hemoglobin 13.7 GM/DL (14.0-18.0); Immature Granulocytes % 0.3 %; Immature Granulocytes Absolute 0.05 #; Lymphocytes # 0.7 10*3/uL (1.4-4.0); Lymphocytes % 4.4 % (21.2-54.2); Mean Corpuscular HGB Conc 34.5 GM/DL (32-36); Mean Corpuscular Volume 91.9 FL (87-102); Mean Platelet Volume 9.9 FL (9.6-12.0); Monocytes % 3.1 % (1.7-12.7); Neutrophils % 92.1 % (38.7-73.9); Platelet Count 344 T/CUMM (130-400); Red Blood Count 4.32 MC/CUMM (3.8-5.5); Red Cell Distribution Width 13.9 % (9.3-17.3); White Blood Count 14.9 T/CUMM (4-12)
[2020-06-22] MEDS ORDERED: cefTRIAXone 1,000 MG in SODIUM CHLORIDE 0.9% 100 ML IV STA (17:57)
[2020-06-22 18:10] LABS: INR 1.1; PT Patient Result 11.4 SECS (9.8-11.9); Partial Thromboplastin Time 27.3 SECS (23.9-33.8)
[2020-06-22 18:37] LABS: Albumin 3.6 G/DL (3.4-5.0); Bilirubin,Total 0.4 MG/DL (0.2-1.0); Calcium 10.2 MG/DL (8.5-10.1); Osmolality,Calculated 294.5 MOS/KG (273-304); Total Protein 8.4 G/DL (6.4-8.3)
[2020-06-22] MEDS ORDERED: SODIUM CHLORIDE 0.9% 1,000 ML IV STA (18:46)
[2020-06-22 19:25] LABS: Lymphocytes 4 % (20-55); Segmented Neutrophils 93 % (50-85); Total Cells Counted 100
[2020-06-22 19:26] LABS: Hypochromasia 1+; Platelet Estimate Normal
[2020-06-22 19:45] LABS: Bilirubin,Urine Negative (Negative); Blood, Urine Negative (Negative); Glucose,Urine (UA) >=500 mg/dL (Negative); Hyaline Casts,Urine 9 /LPF (0-3); Ketones,Urine 5 mg/dL (Negative); Mucus,Urine Occasional /LPF (Occasional); Nitrite,Urine Negative (Negative); Protein,Urine 100 MG/DL; RBC,Urine 1 /HPF (0-4); Squamous Epithelial Cell,Urine Occasional /HPF (0-10); Urine Appearance CLEAR (Clear); Urine Color Yellow (Yellow); Urine Specific Gravity 1.017 (1.001-1.035); Urine Urobilinogen < 2.0 EU/DL (0.2-1.0); WBC,Urine 1 /HPF (0-6)
[2020-06-22] MEDS ORDERED: ACETAMINOPHEN 325 MG TABLET PO PRN (21:36)
[2020-06-22] MEDS ORDERED: ONDANSETRON 4 MG/2 ML VIAL IV PRN (21:36)
[2020-06-22] MEDS: cefTRIAXone 1,000 MG in SODIUM CHLORIDE 0.9% 100 ML IV SCH (22:42)
[2020-06-23] MEDS: SODIUM CHLORIDE 0.9% 1,000 ML IV SCH ×5 (02:42→23:18)
[2020-06-23 05:47] LABS: Basophils % 0.1 % (0.0-0.8); Eosinophils % 0.1 % (0.00-10.9); Hematocrit 32.9 VOL% (42.0-52.0); Immature Granulocytes % 0.4 %; Immature Granulocytes Absolute 0.05 #; Lymphocytes # 1.7 10*3/uL (1.4-4.0); Lymphocytes % 13.3 % (21.2-54.2); Mean Corpuscular HGB Conc 33.4 GM/DL (32-36); Mean Corpuscular Volume 94.5 FL (87-102); Mean Platelet Volume 10.5 FL (9.6-12.0); Monocytes % 7.9 % (1.7-12.7); Neutrophils % 78.2 % (38.7-73.9); Platelet Count 245 T/CUMM (130-400); Red Blood Count 3.48 MC/CUMM (3.8-5.5); Red Cell Distribution Width 14.3 % (9.3-17.3); White Blood Count 12.4 T/CUMM (4-12)
[2020-06-23 06:21] LABS: Albumin 2.6 G/DL (3.4-5.0); Bilirubin,Total 0.4 MG/DL (0.2-1.0); Osmolality,Calculated 291.1 MOS/KG (273-304); Total Protein 6.7 G/DL (6.4-8.3)
[2020-06-23] MEDS ORDERED: PANTOPRAZOLE 40 MG VIAL IV SCH (09:00)
[2020-06-23] MEDS ORDERED: GLUCAGON 1 MG VIAL IM PRN (09:54)
[2020-06-23] MEDS ORDERED: DEXTROSE 50% 25 GM/50 ML VIAL IV PRN (09:54)
[2020-06-23] MEDS: busPIRone 5 MG TABLET PO SCH ×2 (11:09→20:59)
[2020-06-23] MEDS: ENOXAPARIN 40 MG/0.4 ML SYRINGE SUBCUT SCH (11:09)
[2020-06-23] MEDS: DORZOLAMIDE 2% OPH SOLN 10 ML BOTTLE BOTH EYES SCH ×2 (11:11→21:07)
[2020-06-23] MEDS: TAMSULOSIN 0.4 MG CAPSULE PO SCH (16:49)
[2020-06-23] MEDS: POLYETHYLENE GLYCOL POWDER 17 GM PACK PO SCH (16:49)
[2020-06-23] MEDS: GLIMEPIRIDE 4 MG TABLET PO SCH (16:49)
[2020-06-23] MEDS: INSULIN LISPRO 100 UNIT/ML SUBCUT SCH (16:53)
[2020-06-23] MEDS: DULoxetine 30 MG CAPSULE PO SCH (20:58)
[2020-06-23] MEDS: SIMVASTATIN 10 MG TABLET PO SCH (20:58)
[2020-06-23] MEDS: CHOLECALCIFEROL 5,000 UNIT TABLET PO SCH (21:00)
[2020-06-23] MEDS: DOCUSATE SODIUM 100 MG CAPSULE PO SCH (21:00)
[2020-06-23] MEDS: PREGABALIN 100 MG CAPSULE PO SCH (21:00)
[2020-06-23] MEDS: cefTRIAXone 1,000 MG in SODIUM CHLORIDE 0.9% 100 ML IV SCH (21:04)
[2020-06-23] MEDS: MELATONIN 3 MG TABLET PO SCH (21:05)
[2020-06-23] MEDS: TRAVOPROST 0.004% OPH SOLN 2.5 ML BOTTLE BOTH EYES SCH (21:07)
[2020-06-23] MEDS: INSULIN GLARGINE 100 UNIT/ML SUBCUT SCH (23:19)
[2020-06-24] MEDS: TRAVOPROST 0.004% OPH SOLN 2.5 ML BOTTLE BOTH EYES SCH ×2 (00:07→22:35)
[2020-06-24] MEDS: DORZOLAMIDE 2% OPH SOLN 10 ML BOTTLE BOTH EYES SCH ×3 (00:07→22:36)
[2020-06-24] MEDS: SODIUM CHLORIDE 0.9% 1,000 ML IV SCH ×5 (02:20→22:36)
[2020-06-24 06:18] LABS: Basophils # 0.1 10*3/uL (0.0-0.2); Basophils % 0.6 % (0.0-0.8); Eosinophils # 0.2 10*3/uL (0.0-0.87); Eosinophils % 2.7 % (0.00-10.9); Hematocrit 33.7 VOL% (42.0-52.0); Hemoglobin 11.3 GM/DL (14.0-18.0); Immature Granulocytes % 0.3 %; Immature Granulocytes Absolute 0.03 #; Lymphocytes # 2.2 10*3/uL (1.4-4.0); Lymphocytes % 25.3 % (21.2-54.2); Mean Corpuscular HGB Conc 33.5 GM/DL (32-36); Mean Corpuscular Volume 93.6 FL (87-102); Mean Platelet Volume 9.9 FL (9.6-12.0); Monocytes % 7.2 % (1.7-12.7); Neutrophils % 63.9 % (38.7-73.9); Platelet Count 267 T/CUMM (130-400); Red Cell Distribution Width 13.9 % (9.3-17.3); White Blood Count 8.6 T/CUMM (4-12)
[2020-06-24] MEDS: PANTOPRAZOLE 40 MG TABLET PO SCH (06:36)
[2020-06-24 07:02] LABS: Osmolality,Calculated 285.1 MOS/KG (273-304)
[2020-06-24] MEDS ORDERED: hydrALAZINE 25 MG TABLET ONE (07:57)
[2020-06-24] MEDS: busPIRone 5 MG TABLET PO SCH (08:42)
[2020-06-24] MEDS: GLIMEPIRIDE 4 MG TABLET PO SCH ×2 (08:42→17:00)
[2020-06-24] MEDS: ASPIRIN EC 81 MG TABLET PO SCH (08:43)
[2020-06-24] MEDS: THIAMINE 100 MG TABLET PO SCH (08:43)
[2020-06-24] MEDS: DOCUSATE SODIUM 100 MG CAPSULE PO SCH ×2 (08:43→21:10)
[2020-06-24] MEDS: TAMSULOSIN 0.4 MG CAPSULE PO SCH ×2 (08:43→17:01)
[2020-06-24] MEDS: PREGABALIN 100 MG CAPSULE PO SCH ×2 (08:45→21:11)
[2020-06-24] MEDS: FOLIC ACID 1 MG TABLET PO SCH (08:46)
[2020-06-24] MEDS: TIMOLOL 0.5% OPH SOLN 5 ML BOTTLE RIGHT EYE SCH (08:46)
[2020-06-24] MEDS: POLYETHYLENE GLYCOL POWDER 17 GM PACK PO SCH ×2 (08:46→17:01)
[2020-06-24] MEDS: MAGNESIUM HYDROXIDE SUSP 30 ML UDCUP PO SCH (08:46)
[2020-06-24] MEDS: INSULIN LISPRO 100 UNIT/ML SUBCUT SCH ×2 (08:46→17:01)
[2020-06-24] MEDS: ENOXAPARIN 40 MG/0.4 ML SYRINGE SUBCUT SCH (12:19)
[2020-06-24] MEDS ORDERED: POTASSIUM CHLORIDE 20 MEQ TABLET PO ONE (14:58)
[2020-06-24] MEDS: METOPROLOL TARTRATE 25 MG TABLET PO SCH ×2 (15:42→21:11)
[2020-06-24] MEDS: cloNIDine 0.1 MG TABLET PO SCH ×2 (15:42→21:12)
[2020-06-24] MEDS: CHOLECALCIFEROL 5,000 UNIT TABLET PO SCH (19:53)
[2020-06-24] MEDS: cefTRIAXone 1,000 MG in SODIUM CHLORIDE 0.9% 100 ML IV SCH (20:00)
[2020-06-24] MEDS: busPIRone 10 MG TABLET PO SCH (21:10)
[2020-06-24] MEDS: POTASSIUM CHLORIDE 20 MEQ TABLET PO SCH (21:11)
[2020-06-24] MEDS: DULoxetine 30 MG CAPSULE PO SCH (21:11)
[2020-06-24] MEDS: SIMVASTATIN 10 MG TABLET PO SCH (21:11)
[2020-06-24] MEDS: MELATONIN 3 MG TABLET PO SCH (21:11)
[2020-06-24] MEDS: INSULIN GLARGINE 100 UNIT/ML SUBCUT SCH (21:12)
[2020-06-25] MEDS: SODIUM CHLORIDE 0.9% 1,000 ML IV SCH ×3 (04:29→21:02)
[2020-06-25] MEDS: PANTOPRAZOLE 40 MG TABLET PO SCH (05:25)
[2020-06-25] MEDS: INSULIN LISPRO 100 UNIT/ML SUBCUT SCH ×2 (07:28→16:05)
[2020-06-25] MEDS: GLIMEPIRIDE 4 MG TABLET PO SCH ×2 (08:01→16:04)
[2020-06-25] MEDS: MAGNESIUM HYDROXIDE SUSP 30 ML UDCUP PO SCH (08:01)
[2020-06-25] MEDS: busPIRone 10 MG TABLET PO SCH ×2 (08:01→20:55)
[2020-06-25] MEDS: POLYETHYLENE GLYCOL POWDER 17 GM PACK PO SCH ×2 (08:02→16:05)
[2020-06-25] MEDS: DORZOLAMIDE 2% OPH SOLN 10 ML BOTTLE BOTH EYES SCH ×2 (08:02→20:56)
[2020-06-25] MEDS: POTASSIUM CHLORIDE 20 MEQ TABLET PO SCH ×2 (08:02→20:56)
[2020-06-25] MEDS: DOCUSATE SODIUM 100 MG CAPSULE PO SCH ×2 (08:02→20:56)
[2020-06-25] MEDS: cloNIDine 0.1 MG TABLET PO SCH ×2 (08:02→20:55)
[2020-06-25] MEDS: TIMOLOL 0.5% OPH SOLN 5 ML BOTTLE RIGHT EYE SCH (08:02)
[2020-06-25] MEDS: FOLIC ACID 1 MG TABLET PO SCH (08:02)
[2020-06-25] MEDS: THIAMINE 100 MG TABLET PO SCH (08:02)
[2020-06-25] MEDS: TAMSULOSIN 0.4 MG CAPSULE PO SCH ×2 (08:02→16:04)
[2020-06-25] MEDS: ASPIRIN EC 81 MG TABLET PO SCH (08:02)
[2020-06-25] MEDS: PREGABALIN 100 MG CAPSULE PO SCH ×2 (08:02→20:56)
[2020-06-25] MEDS: METOPROLOL TARTRATE 25 MG TABLET PO SCH ×2 (08:03→20:55)
[2020-06-25] MEDS: ENOXAPARIN 40 MG/0.4 ML SYRINGE SUBCUT SCH (11:12)
[2020-06-25] MEDS: cefTRIAXone 1,000 MG in SODIUM CHLORIDE 0.9% 100 ML IV SCH (20:54)
[2020-06-25] MEDS: MELATONIN 3 MG TABLET PO SCH (20:55)
[2020-06-25] MEDS: CHOLECALCIFEROL 5,000 UNIT TABLET PO SCH (20:55)
[2020-06-25] MEDS: DULoxetine 30 MG CAPSULE PO SCH (20:55)
[2020-06-25] MEDS: SIMVASTATIN 10 MG TABLET PO SCH (20:56)
[2020-06-25] MEDS: TRAVOPROST 0.004% OPH SOLN 2.5 ML BOTTLE BOTH EYES SCH (20:56)
[2020-06-25] MEDS: INSULIN GLARGINE 100 UNIT/ML SUBCUT SCH (21:02)
[2020-06-26] MEDS: PANTOPRAZOLE 40 MG TABLET PO SCH (06:30)
[2020-06-26] MEDS: SODIUM CHLORIDE 0.9% 1,000 ML IV SCH ×2 (06:30→12:44)
[2020-06-26 06:47] LABS: Basophils # 0.1 10*3/uL (0.0-0.2); Basophils % 0.9 % (0.0-0.8); Eosinophils # 0.5 10*3/uL (0.0-0.87); Eosinophils % 6.4 % (0.00-10.9); Hematocrit 30.8 VOL% (42.0-52.0); Hemoglobin 10.4 GM/DL (14.0-18.0); Immature Granulocytes % 0.4 %; Immature Granulocytes Absolute 0.03 #; Lymphocytes # 2.5 10*3/uL (1.4-4.0); Lymphocytes % 31.5 % (21.2-54.2); Mean Corpuscular HGB Conc 33.8 GM/DL (32-36); Mean Corpuscular Volume 95.4 FL (87-102); Monocytes % 7.3 % (1.7-12.7); Neutrophils % 53.5 % (38.7-73.9); Platelet Count 278 T/CUMM (130-400); Red Blood Count 3.23 MC/CUMM (3.8-5.5); Red Cell Distribution Width 13.5 % (9.3-17.3); White Blood Count 7.8 T/CUMM (4-12)
[2020-06-26 07:18] LABS: Calcium 8.3 MG/DL (8.5-10.1); Osmolality,Calculated 281.1 MOS/KG (273-304)
[2020-06-26] MEDS: INSULIN LISPRO 100 UNIT/ML SUBCUT SCH ×2 (08:30→16:09)
[2020-06-26] MEDS: DOCUSATE SODIUM 100 MG CAPSULE PO SCH (09:44)
[2020-06-26] MEDS: METOPROLOL TARTRATE 25 MG TABLET PO SCH (09:44)
[2020-06-26] MEDS: PREGABALIN 100 MG CAPSULE PO SCH (09:44)
[2020-06-26] MEDS: ASPIRIN EC 81 MG TABLET PO SCH (09:44)
[2020-06-26] MEDS: THIAMINE 100 MG TABLET PO SCH (09:45)
[2020-06-26] MEDS: busPIRone 10 MG TABLET PO SCH (09:45)
[2020-06-26] MEDS: GLIMEPIRIDE 4 MG TABLET PO SCH ×2 (09:45→17:02)
[2020-06-26] MEDS: TAMSULOSIN 0.4 MG CAPSULE PO SCH ×2 (09:45→17:02)
[2020-06-26] MEDS: POLYETHYLENE GLYCOL POWDER 17 GM PACK PO SCH ×3 (09:45→16:10)
[2020-06-26] MEDS: FOLIC ACID 1 MG TABLET PO SCH (09:45)
[2020-06-26] MEDS: cloNIDine 0.1 MG TABLET PO SCH (09:45)
[2020-06-26] MEDS: POTASSIUM CHLORIDE 20 MEQ TABLET PO SCH (09:45)
[2020-06-26] MEDS: MAGNESIUM HYDROXIDE SUSP 30 ML UDCUP PO SCH (09:47)
[2020-06-26] MEDS: DORZOLAMIDE 2% OPH SOLN 10 ML BOTTLE BOTH EYES SCH (09:48)
[2020-06-26] MEDS: TIMOLOL 0.5% OPH SOLN 5 ML BOTTLE RIGHT EYE SCH (09:48)
[2020-06-26 12:12] VITALS: BP 152/77
[2020-06-26] MEDS: ENOXAPARIN 40 MG/0.4 ML SYRINGE SUBCUT SCH (12:59)
[2020-07-15] MEDS ORDERED: HALOPERIDOL DECANOATE 50 MG/1 ML VIAL IM SCH (09:00)
== END 2020-06-26 17:57 | DRG 641 ==
LOC: EDBD → EDUNIT# → N.ED 17:09 → N.EDINP 21:35 → N.TELEN 23:45
PROVIDERS: ADMIT Internal Medicine; ATTEND Internal Medicine

== ENCOUNTER 2021-10-16 12:43 | Observation (INO) ==
[2021-10-16 14:46] LABS: Basophils % 0.2 % (0.0-0.8); Eosinophils % 0.2 % (0.00-10.9); Hematocrit 45.7 VOL% (42.0-52.0); Hemoglobin 14.5 GM/DL (14.0-18.0); Immature Granulocytes % 0.5 %; Immature Granulocytes Absolute 0.08 #; Lymphocytes # 1.7 10*3/uL (1.4-4.0); Lymphocytes % 10.3 % (21.2-54.2); Mean Corpuscular HGB Conc 31.7 GM/DL (32-36); Mean Corpuscular Volume 93.5 FL (87-102); Monocytes % 8.1 % (1.7-12.7); Neutrophils % 80.7 % (38.7-73.9); Platelet Count 350 T/CUMM (130-400); Red Blood Count 4.89 MC/CUMM (3.8-5.5); Red Cell Distribution Width 14.5 % (9.3-17.3); White Blood Count 16.8 T/CUMM (4-12)
[2021-10-16 14:55] LABS: Bacteria,Urine Many /HPF (Few); Bilirubin,Urine Negative (Negative); Blood, Urine Small mg/dL (Negative); Glucose,Urine (UA) Negative (Negative); Ketones,Urine 20 mg/dL (Negative); Mucus,Urine Occasional /LPF (Occasional); Nitrite,Urine Negative (Negative); Protein,Urine 30 MG/DL; RBC,Urine 3 /HPF (0-4); Urine Appearance Slightly Hazy (Clear); Urine Color Yellow (Yellow); Urine Specific Gravity 1.014 (1.001-1.035); Urine Urobilinogen < 2.0 EU/DL (<2.0)
[2021-10-16 15:13] LABS: Albumin 2.8 G/DL (3.4-5.0); Bilirubin,Total 0.6 MG/DL (0.20-1.00); Calcium 10.1 MG/DL (8.5-10.1); Osmolality,Calculated 273.1 MOS/KG (273-304); Potassium 3.8 MMOL/L (3.5-5.1); Total Protein 9.6 G/DL (6.4-8.2)
[2021-10-16] MEDS ORDERED: cefTRIAXone 1,000 MG in SODIUM CHLORIDE 0.9% 100 ML IV STA (15:34)
[2021-10-16] MEDS ORDERED: ACETAMINOPHEN 325 MG TABLET PO PRN (16:09)
[2021-10-16] MEDS ORDERED: ONDANSETRON 4 MG/2 ML VIAL IV PRN (16:09)
[2021-10-16] MEDS ORDERED: DOCUSATE SODIUM 100 MG CAPSULE PO SCH (21:00)
[2021-10-16] MEDS ORDERED: GLUCAGON 1 MG VIAL IM PRN (21:01)
[2021-10-16] MEDS ORDERED: DEXTROSE 10% 250 ML BAG IV PRN (21:01)
[2021-10-16] MEDS: SODIUM CHLORIDE 0.9% 1,000 ML IV SCH (21:33)
[2021-10-16] MEDS: busPIRone 10 MG TABLET PO SCH (21:33)
[2021-10-16] MEDS: cloNIDine 0.1 MG TABLET PO SCH (21:33)
[2021-10-16] MEDS: MELATONIN 3 MG TABLET PO SCH (21:34)
[2021-10-16] MEDS: DOCUSATE SODIUM 100 MG CAPSULE PO SCH (21:34)
[2021-10-16] MEDS: METOPROLOL TARTRATE 25 MG TABLET PO SCH (21:34)
[2021-10-16] MEDS: TRAVOPROST 0.004% OPH SOLN 2.5 ML BOTTLE BOTH EYES SCH (23:06)
[2021-10-16] MEDS: DORZOLAMIDE 2% OPH SOLN 10 ML BOTTLE BOTH EYES SCH (23:06)
[2021-10-17 05:47] LABS: Calcium 8.6 MG/DL (8.5-10.1); Osmolality,Calculated 272.4 MOS/KG (273-304); Potassium 3.5 MMOL/L (3.5-5.1); Uric Acid 8.5 MG/DL (3.5-7.2)
[2021-10-17 05:55] LABS: Basophils % 0.3 % (0.0-0.8); Eosinophils # 0.2 10*3/uL (0.0-0.87); Eosinophils % 1.3 % (0.00-10.9); Hematocrit 34.7 VOL% (42.0-52.0); Immature Granulocytes % 0.6 %; Immature Granulocytes Absolute 0.07 #; Lymphocytes # 1.2 10*3/uL (1.4-4.0); Lymphocytes % 10.1 % (21.2-54.2); Mean Corpuscular HGB Conc 32.6 GM/DL (32-36); Mean Corpuscular Volume 92.3 FL (87-102); Mean Platelet Volume 9.9 FL (9.6-12.0); Monocytes % 7.6 % (1.7-12.7); Neutrophils % 80.1 % (38.7-73.9); Platelet Count 316 T/CUMM (130-400); Red Cell Distribution Width 14.1 % (9.3-17.3); White Blood Count 11.9 T/CUMM (4-12)
[2021-10-17 06:29] LABS: Hemoglobin 11.3 GM/DL (14.0-18.0); Red Blood Count 3.76 MC/CUMM (3.8-5.5)
[2021-10-17] MEDS: SODIUM CHLORIDE 0.9% 1,000 ML IV SCH ×2 (10:51→12:00)
[2021-10-17] MEDS: INSULIN REGULAR 100 UNIT/ML SUBCUT SCH ×4 (10:51→20:44)
[2021-10-17] MEDS: cefTRIAXone 1,000 MG in SODIUM CHLORIDE 0.9% 100 ML IV SCH (11:58)
[2021-10-17] MEDS: cloNIDine 0.1 MG TABLET PO SCH ×2 (11:58→20:37)
[2021-10-17] MEDS: PANTOPRAZOLE 40 MG TABLET PO SCH (11:59)
[2021-10-17] MEDS: METOPROLOL TARTRATE 25 MG TABLET PO SCH ×2 (11:59→20:38)
[2021-10-17] MEDS: PREGABALIN 50 MG CAPSULE PO SCH ×2 (11:59→20:37)
[2021-10-17] MEDS: GLIMEPIRIDE 4 MG TABLET PO SCH ×2 (11:59→17:05)
[2021-10-17] MEDS: THIAMINE 100 MG TABLET PO SCH (11:59)
[2021-10-17] MEDS: DOCUSATE SODIUM 100 MG CAPSULE PO SCH ×2 (11:59→20:37)
[2021-10-17] MEDS: busPIRone 10 MG TABLET PO SCH ×2 (11:59→20:37)
[2021-10-17] MEDS: DULoxetine 30 MG CAPSULE PO SCH (11:59)
[2021-10-17] MEDS: POLYETHYLENE GLYCOL POWDER 17 GM PACK PO SCH ×2 (11:59→17:05)
[2021-10-17] MEDS: POTASSIUM CHLORIDE 20 MEQ TABLET PO SCH ×2 (11:59→20:38)
[2021-10-17] MEDS: ASPIRIN EC 81 MG TABLET PO SCH (11:59)
[2021-10-17] MEDS: DORZOLAMIDE 2% OPH SOLN 10 ML BOTTLE BOTH EYES SCH ×2 (12:00→20:45)
[2021-10-17] MEDS: TIMOLOL 0.5% OPH SOLN 5 ML BOTTLE RIGHT EYE SCH (12:00)
[2021-10-17] MEDS: TAMSULOSIN 0.4 MG CAPSULE PO SCH ×2 (12:50→20:37)
[2021-10-17] MEDS ORDERED: CHOLECALCIFEROL 5,000 UNIT TABLET PO SCH (20:00)
[2021-10-17] MEDS: MELATONIN 3 MG TABLET PO SCH (20:37)
[2021-10-17] MEDS: TRAVOPROST 0.004% OPH SOLN 2.5 ML BOTTLE BOTH EYES SCH (20:44)
[2021-10-18] MEDS: SODIUM CHLORIDE 0.9% 1,000 ML IV SCH (05:50)
[2021-10-18 05:52] LABS: Basophils # 0.1 10*3/uL (0.0-0.2); Basophils % 0.5 % (0.0-0.8); Eosinophils # 0.3 10*3/uL (0.0-0.87); Eosinophils % 2.8 % (0.00-10.9); Hematocrit 33.6 VOL% (42.0-52.0); Hemoglobin 10.8 GM/DL (14.0-18.0); Immature Granulocytes % 0.4 %; Immature Granulocytes Absolute 0.04 #; Lymphocytes % 19.2 % (21.2-54.2); Mean Corpuscular HGB Conc 32.1 GM/DL (32-36); Mean Corpuscular Volume 93.3 FL (87-102); Mean Platelet Volume 9.7 FL (9.6-12.0); Neutrophils % 67.1 % (38.7-73.9); Platelet Count 320 T/CUMM (130-400); White Blood Count 10.2 T/CUMM (4-12)
[2021-10-18 06:09] LABS: Calcium 8.2 MG/DL (8.5-10.1); Osmolality,Calculated 283.3 MOS/KG (273-304); Potassium 3.8 MMOL/L (3.5-5.1)
[2021-10-18] MEDS: INSULIN REGULAR 100 UNIT/ML SUBCUT SCH ×2 (08:33→12:35)
[2021-10-18] MEDS ORDERED: allopurinoL 100 MG TABLET PO SCH (09:00)
[2021-10-18] MEDS: POLYETHYLENE GLYCOL POWDER 17 GM PACK PO SCH (10:06)
[2021-10-18] MEDS: cloNIDine 0.1 MG TABLET PO SCH (10:06)
[2021-10-18] MEDS: DULoxetine 30 MG CAPSULE PO SCH (10:06)
[2021-10-18] MEDS: DOCUSATE SODIUM 100 MG CAPSULE PO SCH (10:06)
[2021-10-18] MEDS: ASPIRIN EC 81 MG TABLET PO SCH (10:06)
[2021-10-18] MEDS: busPIRone 10 MG TABLET PO SCH (10:06)
[2021-10-18] MEDS: THIAMINE 100 MG TABLET PO SCH (10:06)
[2021-10-18] MEDS: PREGABALIN 50 MG CAPSULE PO SCH (10:07)
[2021-10-18] MEDS: cefTRIAXone 1,000 MG in SODIUM CHLORIDE 0.9% 100 ML IV SCH (10:07)
[2021-10-18] MEDS: DORZOLAMIDE 2% OPH SOLN 10 ML BOTTLE BOTH EYES SCH (10:07)
[2021-10-18] MEDS: TIMOLOL 0.5% OPH SOLN 5 ML BOTTLE RIGHT EYE SCH (10:07)
[2021-10-18] MEDS: TAMSULOSIN 0.4 MG CAPSULE PO SCH (10:07)
[2021-10-18] MEDS: METOPROLOL TARTRATE 25 MG TABLET PO SCH (10:07)
[2021-10-18] MEDS: GLIMEPIRIDE 4 MG TABLET PO SCH (10:07)
[2021-10-18] MEDS: POTASSIUM CHLORIDE 20 MEQ TABLET PO SCH (10:07)
[2021-10-18] MEDS: PANTOPRAZOLE 40 MG TABLET PO SCH (10:07)
[2021-10-18 12:46] VITALS: BP 107/51
== END 2021-10-18 14:10 ==
LOC: EDBD → EDUNIT# → N.ED 12:43 → N.3E 12:43
PROVIDERS: ADMIT Internal Medicine; ATTEND Internal Medicine